=== PATIENT | female | born 2000 | race Caucasian/White ===

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

== ENCOUNTER 2021-01-21 16:27 | Emergency (ER) | payer MEDICAID ==
[~2021-01-21] VITALS: Ht 170 cm; Wt 79.0 kg
[~2021-01-21 16:27] MED LIST: ERYT1OIN6 OP
[2021-01-21] MEDS ORDERED: IBUPROFEN 800 MG (MOTRIN) TAB PO ONE ×2 (18:00→18:02)
--- NOTE | 2021-01-21 18:00 | ED Cough/URI ---
General Chief Complaint: COVID19 Suspect/Confirmed Stated Complaint: CHILLS,SORE THROAT,HEADACHE, BODY ACHES Nursing Triage Note: PT AMB TO ER WITH C/O SOB, COUGH, BODY ACHES TODAY. SHE HAS BEEN AROUND SICK FRIENDS. PT TRIED TO WORK TODAY BUT WAS SENT HOME DUE TO FEELING ILL Source: patient Exam Limitations: no limitations Allergies and Home Medications Allergies Coded Allergies: latex (Verified Allergy, Unknown, 12/28/20) Patient Home Medication List Erythromycin Base (Erythromycin Opthalmic Ointment) 1 Gm Oint...g., 0 OP Q6H Prescribed by: ETHEL MA on 12/28/20 1117 Past Wxzhzos-Jbpimv-Zisvbg Hx Patient Social History Use of E-Cig and/or Vaping dev: Yes E-Cig or Vaping type used: Nicotine Use of E-Cig and/or Vaping Jeferson: Current Everyday User Substance use?: No Alcohol Use?: Yes Alcohol type: Wine Alcohol Frequency: Rarely Pt feels they are or have been: No Immunizations Up To Date Influenza Vaccine Up-to-Date: No; Not Current Past Medical History Surgery/Hospitalization HX: DEPRESSION, ANXIETY, BIPOLAR, HSV Surgeries: No Physical Exam Vital Signs - First Documented 01/21/21 16:38 Temp 38.2 Pulse 100 Resp 18 B/P (MAP) 140/92 (108) Pulse Ox 99 O2 Delivery Room Air Capillary Refill : Less Than 3 Seconds Height: '" Weight: lbs. oz. kg; 27.00 BMI Method: Progress/Results/Core Measures Suspected Sepsis SIRS Temperature: Pulse: 100 Respiratory Rate: 18 Blood Pressure 140 /92 Mean: 108 Results/Orders Lab Results Laboratory Tests Test 01/21/21 16:43 Range/Units Influenza Type A (RT-PCR) Detected H Not Detecte Influenza Type B (RT-PCR) Not Detected Not Detecte SARS-CoV-2 RNA (RT-PCR) Not Detected Not Detecte My Orders Orders - MICAELA PAULINO APRN Covid 19 Inhouse Test (01/21/21 16:44) Influenza A And B By Pcr (01/21/21 16:44) Vital Signs/I&O 01/21/21 16:38 Temp 38.2 Pulse 100 Resp 18 B/P (MAP) 140/92 (108) Pulse Ox 99 O2 Delivery Room Air Capillary Refill : Less Than 3 Seconds Blood Pressure Mean: 108 Departure Impression Primary Impression: Influenza A Disposition: 01 HOME, SELF-CARE Condition: Stable Departure-Patient Inst. Decision time for Depature: 17:57 Referrals: NO,LOCAL PHYSICIAN (PCP/Family) Primary Care Physician Patient Instructions: Flu, Adult (DC) Add. Discharge Instructions: Plan: 1. Drink plenty of fluids to stay hydrated. You can take Tylenol 1000mg every 8 hours as needed or Ibuprofen 600mg every 6 hours as needed for pain/fever. 2. Take your Xofluza as directed. This may shorten the length of your symptoms. 3. Quarantine at home until you are fever free for 24 hours without use of medication (Tylenol/Ibuprofen). 4. Return for any new, concerning, or worsening symptoms. All discharge instructions reviewed with patient and/or family. Voiced understanding. Scripts Baloxavir Marboxil (Xofluza) 40 Mg Tablet 40 MG PO ONCE, #1 TAB 0 Refills Prov: MICAELA PAULINO ACADEMY DIRECTOR 01/21/21 Work/School Note: Work Release Form Date Seen in the Emergency Department: Jan 21, 2021 Return to Work: Jan 27, 2021 Restrictions: No Restrictions Restrictions: Must be fever free for 24 hours before returning to work. MICAELA PAULINO ACADEMY DIRECTOR Jan 21, 2021 18:00
[2021-01-21] MEDS ORDERED: BALO40TA PO (18:01)
[2021-01-21 18:12] VITALS: BP 149/92
== END 2021-01-21 18:14 | disposition home or self-care (01) ==
LOC: EDUNIT# 16:27 → ER 16:29
DX: J10.1 Influenza due to other identified influenza virus with other respiratory manifestations (principal); F17.290 Nicotine dependence, other tobacco product, uncomplicated; Z91.040 Latex allergy status; Z20.822 Contact with and (suspected) exposure to COVID-19
CPT/HCPCS: 87636; 99283

== ENCOUNTER 2021-08-12 09:02 | Emergency (ER) | payer MEDICAID ==
[~2021-08-12] VITALS: Ht 170 cm; Wt 74.0 kg
[~2021-08-12 09:02] MED LIST changes: +BALO40TA4 PO
[2021-08-12 09:34] LABS: CLARITY,URINE CLEAR; COLOR,URINE YELLOW; GLUCOSE, URINE (UA) NEGATIVE (NEGATIVE); KETONES,URINE TRACE (NEGATIVE); LEUKOCYTE ESTERASE ,URINE TRACE (NEGATIVE); NITRITE,URINE NEGATIVE (NEGATIVE); PROTEIN,URINE TRACE (NEGATIVE)
[2021-08-12 09:42] LABS: BACTERIA,URINE MODERATE /HPF; BILIRUBIN,URINE 1+ (NEGATIVE)
--- NOTE | 2021-08-12 11:17 | ED Abdominal Pain ---
General Chief Complaint: Abdominal/GI Problems Stated Complaint: LLQ PAIN,FEVER Nursing Triage Note: ARRIVED VIA AMB WITH COMPLAINTS OF LEFT SIDED ABD PAIN THAT STARTED YESTERDAY AM. PT ALSO COMPLAINS OF A HEADACHE X4 DAYS. Source of Information: Patient Exam Limitations: No Limitations History of Present Illness Date Seen by Provider: Aug 12, 2021 Time Seen by Provider: 11:16 Initial Comments This is a well-appearing 19-year-old female who presented to the ER with complaints of left upper quadrant abdominal pain x2 days. She states she is also had a headache for the past 4 days but does not feel this is related to her current complaint. She denies any known ill contacts. Reports some nausea with no emesis. States that she used to drink very heavy over the past several years but has slowly decreased the amount of alcohol she drinks. 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 No fever, chills, rash, cough, shortness of breath, chest pain. Allergies and Home Medications Allergies Coded Allergies: latex (Verified Allergy, Unknown, 12/28/20) Patient Home Medication List Home Medication List Reviewed: Yes Discontinued Medications Baloxavir Marboxil (Xofluza) 40 Mg Tablet, 40 MG PO ONCE Discontinued Reason: No Longer Taking Prescribed by: MICAELA PAULINO on 01/21/21 1801 Last Action: Discontinued Erythromycin Base (Erythromycin Opthalmic Ointment) 1 Gm Oint...g., 0 OP Q6H Discontinued Reason: No Longer Taking Prescribed by: ETHEL MA on 12/28/20 1117 Last Action: Discontinued Review of Systems Review of Systems Constitutional: see HPI EENTM: No Symptoms Reported Respiratory: No Symptoms Reported Cardiovascular: No Symptoms Reported Gastrointestinal: See HPI Genitourinary: No Symptoms Reported Musculoskeletal: no symptoms reported Skin: no symptoms reported Psychiatric/Neurological: No Symptoms Reported Endocrine: No Symptoms Reported Hematologic/Lymphatic: No Symptoms Reported Past Vlecfvh-Docwvv-Ndjodl Hx Patient Social History Use of E-Cig and/or Vaping dev: Yes E-Cig or Vaping type used: Nicotine Substance use?: Yes Substance type: Marijuana Alcohol Use?: Yes Alcohol Frequency: Once in a while Past Medical History Surgery/Hospitalization HX: DEPRESSION, ANXIETY, BIPOLAR, HSV Surgeries: No Physical Exam Vital Signs Vital Signs - First Documented 08/12/21 09:10 Temp 37.7 Pulse 98 Resp 16 B/P (MAP) 131/94 (106) Pulse Ox 99 O2 Delivery Room Air Capillary Refill : Less Than 3 Seconds Height/Weight/BMI Height: '" Weight: lbs. oz. kg; 25.00 BMI Method: General Appearance: WD/WN, no apparent distress HEENT: PERRL/EOMI, normal ENT inspection, TMs normal, pharynx normal Neck: full range of motion, supple, normal inspection Respiratory: lungs clear, normal breath sounds, no respiratory distress, no accessory muscle use Cardiovascular: regular rate, rhythm, no murmur Gastrointestinal: normal bowel sounds, soft; No distended, No guarding, No rebound; tenderness (LUQ tenderness ) Extremities: normal range of motion, normal inspection Back: normal inspection Neurologic/Psychiatric: no motor/sensory deficits, alert, normal mood/affect, oriented x 3 Skin: normal color, warm/dry Progress/Results/Core Measures Results/Orders Lab Results Laboratory Tests Test 08/12/21 09:10 08/12/21 09:25 08/12/21 11:10 Range/Units Hepatitis A IgM Antibody Non-Reactive Non-Reactive Hepatitis B Surface Antigen Non-Reactive Non-Reactive Hepatitis B Core IgM Antibody Non-Reactive Non-Reactive Hepatitis C Antibody Non-Reactive Non-Reactive Monoscreen NEGATIVE NEGATIVE Urine Color YELLOW Urine Clarity CLEAR Urine pH 6.0 5-9 Urine Specific Furlong >=1.030 1.016-1.022 Urine Protein TRACE H NEGATIVE Urine Glucose (UA) NEGATIVE NEGATIVE Urine Ketones TRACE H NEGATIVE Urine Nitrite NEGATIVE NEGATIVE Urine Bilirubin 1+ H NEGATIVE Urine Urobilinogen 1.0 < = 1.0 MG/DL Urine Leukocyte Esterase TRACE H NEGATIVE Urine RBC (Auto) NEGATIVE NEGATIVE Urine RBC NONE /HPF Urine WBC 5-10 H /HPF Urine Squamous Epithelial Cells 5-10 /HPF Urine Crystals NONE /LPF Urine Bacteria MODERATE H /HPF Urine Casts NONE /LPF Urine Mucus NEGATIVE /LPF Urine Culture Indicated YES White Blood Count 11.2 H 4.3-11.0 10^3/uL Red Blood Count 5.02 3.80-5.11 10^6/uL Hemoglobin 15.0 11.5-16.0 g/dL Hematocrit 46 35-52 % Mean Corpuscular Volume 91 80-99 fL Mean Corpuscular Hemoglobin 30 25-34 pg Mean Corpuscular Hemoglobin Concent 33 32-36 g/dL Red Cell Distribution Width 14.5 10.0-14.5 % Platelet Count 243 130-400 10^3/uL Mean Platelet Volume 11.7 9.0-12.2 fL Immature Granulocyte % (Auto) 0 % Neutrophils (%) (Auto) 32 L 42-75 % Lymphocytes (%) (Auto) 52 H 12-44 % Monocytes (%) (Auto) 13 H 0-12 % Eosinophils (%) (Auto) 2 0-10 % Basophils (%) (Auto) 1 0-10 % Neutrophils # (Auto) 3.6 1.8-7.8 10^3/uL Lymphocytes # (Auto) 5.8 H 1.0-4.0 10^3/uL Monocytes # (Auto) 1.5 H 0.0-1.0 10^3/uL Eosinophils # (Auto) 0.2 0.0-0.3 10^3/uL Basophils # (Auto) 0.2 H 0.0-0.1 10^3/uL Immature Granulocyte # (Auto) 0.0 0.0-0.1 10^3/uL Sodium Level 138 135-145 MMOL/L Potassium Level 4.3 3.6-5.0 MMOL/L Chloride Level 104 98-107 MMOL/L Carbon Dioxide Level 22 21-32 MMOL/L Anion Gap 12 5-14 MMOL/L Blood Urea Nitrogen 15 7-18 MG/DL Creatinine 0.83 0.60-1.30 MG/DL Estimat Glomerular Filtration Rate 104 BUN/Creatinine Ratio 18 Glucose Level 81 70-105 MG/DL Calcium Level 9.5 8.5-10.1 MG/DL Corrected Calcium 9.4 8.5-10.1 MG/DL Total Bilirubin 0.7 0.1-1.0 MG/DL Aspartate Amino Transf (AST/SGOT) 149 H 5-34 U/L Alanine Aminotransferase (ALT/SGPT) 218 H 0-55 U/L Alkaline Phosphatase 140 H 40-136 U/L Total Protein 8.0 6.4-8.2 GM/DL Albumin 4.1 3.2-4.5 GM/DL Lipase 35 8-78 U/L Micro Results Microbiology 08/12/21 Urine Culture - Final, Complete Mixed Bacterial Beth My Orders Orders - MICAELA PAULINO CARTON FILLER Cbc With Automated Diff (08/12/21 11:16) Comprehensive Metabolic Panel (08/12/21 11:16) Lipase (08/12/21 11:16) Ketorolac Injection (Toradol Injection) (08/12/21 11:30) Ct Abdomen/Pelvis Wo (08/12/21 12:01) Monotest (08/12/21 12:02) Hepatitis Panel Acute (08/12/21 12:40) Medications Given in ED Vital Signs/I&O 08/12/21 08/12/21 09:10 13:05 Temp 37.7 Pulse 98 85 Resp 16 16 B/P (MAP) 131/94 (106) 126/78 Pulse Ox 99 99 O2 Delivery Room Air Room Air Blood Pressure Mean: 106 Progress Progress Note : Progress Note Patient examined and in no acute distress. Orders given for basic labs, lipase, Monospot, UA. We will go ahead and do CT abdomen pelvis with contrast. Given Toradol IV for pain. Reported improvement of pain with Toradol. Her liver enzymes were marginally elevated and she had some splenomegaly on her CT exam. Her Monospot was negativ e. Discussed this is could be related to her excessive alcohol consumption vs viral infection and would recommend decreasing the amount of alcohol she takes. Strongly encouraged having a primary care provider so we can continue further work-up and re-evaluate her LFT's, will go ahead and add a acute hepatitis panel as she does not have a PCP at this time. Discharge POC reviewed and she is agreeable with plan. Diagnostic Imaging Diagonstic Imaging: CT Plain Films/CT/US/NM/MRI: abdomen, pelvis Comments [facility], [place] NAME: HUYEN CONTEH Christi [facility] REC#: [id number] PT STATUS: DEP ER : 2000 PHYSICIAN: MICAELA PAULINO CARTON FILLER ADMIT DATE: 08/12/21/ER Signed Date of Exam:08/12/21 CT ABDOMEN/PELVIS WO PROCEDURE: CT abdomen and pelvis without contrast. TECHNIQUE: Multiple contiguous axial images were obtained through the abdomen and pelvis without the use of intravenous contrast. Auto Exposure Controls were utilized during the CT exam to meet ALARA standards for radiation dose reduction. INDICATION: Left-sided abdominal pain. Headache. COMPARISON: None FINDINGS: Included portions lung bases are clear. CT ABDOMEN: Spleen is mildly enlarged. It measures 11.6 x 8.9 x 14.9 cm. No focal splenic lesions are seen on this noncontrast exam. The adrenal glands, kidneys, pancreas, and liver have an unremarkable noncontrast CT appearance. Small bowel loops are nondistended. Normal appendix is identified. There is no loculated fluid collection, free fluid or free air within the abdomen. No abnormal mesenteric or retroperitoneal adenopathy is seen. Osseous structures show no acute abnormalities. CT pelvis: Urinary bladder is unopacified. No calculi are seen within urinary bladder. Small amount of free fluid is present within the pelvis. Indwelling intrauterine contraceptive device is also noted and appears to be in appropriate position. There is no loculated fluid collection or free air. No abnormal adenopathy is seen. Osseous structures show no acute abnormalities. IMPRESSION: 1. Mild splenomegaly. 2. Small amount of free fluid within the pelvis; possibly physiologic. Dictated by: Dictated on workstation # [id number] Dict: 08/12/21 1223 Trans: 08/12/21 1700 [id number] Interpreted by: ALINE CHENG MD Electronically signed by: ALINE CHENG MD 08/12/211699 Reviewed: Reviewed by Me Departure Impression Primary Impression: Elevated liver transaminase level Additional Impression: Spleen enlargement Disposition: 01 HOME, SELF-CARE Condition: Improved Departure-Patient Inst. Decision time for Depature: 12:42 Referrals: NO,LOCAL PHYSICIAN (PCP/Family) Primary Care Physician Patient Instructions: LOCAL PHYSICIAN LIST, Cirrhosis (DC) Add. Discharge Instructions: Plan: 1. Quit drinking alcohol. Avoid taking medications that contain Tylenol. 2. Establish with a primary care provider of your choice and have follow up to have your liver enzymes rechecked in 4-6 weeks. 3. We added a hepatitis panel to your labs. We will notify you if any are positive. 4. Rest. Avoid contact sports as your spleen is more susceptible to rupture with trauma due to enlargement. 5. Return to ER for any new, concerning, or worsening symptoms. All discharge instructions reviewed with patient and/or family. Voiced understanding. MICAELA PUALINO CARTON FILLER Aug 12, 2021 11:17
[2021-08-12 11:24] LABS: BASOPHILS # (AUTO) 0.2 10^3/uL (0.0-0.1); BASOPHILS % (AUTO) 1 % (0-10); EOSINOPHILS # (AUTO) 0.2 10^3/uL (0.0-0.3); EOSINOPHILS % (AUTO) 2 % (0-10); HEMATOCRIT 46 % (35-52); LYMPHOCYTES # (AUTO) 5.8 10^3/uL (1.0-4.0); LYMPHOCYTES % (AUTO) 52 % (12-44); MEAN CORPUSCULAR HEMOGLOBIN 30 pg (25-34); MEAN CORPUSCULAR HGB CONC 33 g/dL (32-36); MEAN CORPUSCULAR VOLUME 91 fL (80-99); MEAN PLATELET VOLUME 11.7 fL (9.0-12.2); MONOCYTES # (AUTO) 1.5 10^3/uL (0.0-1.0); MONOCYTES % (AUTO) 13 % (0-12); NEUTROPHILS # (AUTO) 3.6 10^3/uL (1.8-7.8); NEUTROPHILS % (AUTO) 32 % (42-75); PLATELET COUNT 243 10^3/uL (130-400); WHITE BLOOD COUNT 11.2 10^3/uL (4.3-11.0)
[2021-08-12] MEDS ORDERED: KETOROLAC 30 MG/ML VIAL IVP ONE (11:30)
[2021-08-12 11:33] LABS: ALBUMIN 4.1 GM/DL (3.2-4.5)
[2021-08-12 11:34] LABS: POTASSIUM 4.3 MMOL/L (3.6-5.0)
[2021-08-12 11:35] LABS: CALCIUM 9.5 MG/DL (8.5-10.1)
[2021-08-12 11:38] LABS: BILIRUBIN,TOTAL 0.7 MG/DL (0.1-1.0)
[2021-08-12 11:40] LABS: CREATININE SERUM 0.83 MG/DL (0.60-1.30)
--- NOTE | 2021-08-12 12:32 | Diagnostic Imaging Report ---
PROCEDURE: CT abdomen and pelvis without contrast. TECHNIQUE: Multiple contiguous axial images were obtained through the abdomen and pelvis without the use of intravenous contrast. Auto Exposure Controls were utilized during the CT exam to meet ALARA standards for radiation dose reduction. INDICATION: Left-sided abdominal pain. Headache. COMPARISON: None FINDINGS: Included portions lung bases are clear. CT ABDOMEN: Spleen is mildly enlarged. It measures 11.6 x 8.9 x 14.9 cm. No focal splenic lesions are seen on this noncontrast exam. The adrenal glands, kidneys, pancreas, and liver have an unremarkable noncontrast CT appearance. Small bowel loops are nondistended. Normal appendix is identified. There is no loculated fluid collection, free fluid or free air within the abdomen. No abnormal mesenteric or retroperitoneal adenopathy is seen. Osseous structures show no acute abnormalities. CT pelvis: Urinary bladder is unopacified. No calculi are seen within urinary bladder. Small amount of free fluid is present within the pelvis. Indwelling intrauterine contraceptive device is also noted and appears to be in appropriate position. There is no loculated fluid collection or free air. No abnormal adenopathy is seen. Osseous structures show no acute abnormalities. IMPRESSION: 1. Mild splenomegaly. 2. Small amount of free fluid within the pelvis; possibly physiologic. Dictated by: Dictated on workstation # [id number]
[2021-08-12 13:05] VITALS: BP 126/78
[2021-08-12 22:58] LABS: HEPATITIS C ANTIBODY C Non-Reactive (Non-Reactive)
== END 2021-08-12 13:05 | disposition home or self-care (01) ==
LOC: EDUNIT# 09:02 → ER 09:03
DX: R16.1 Splenomegaly, not elsewhere classified (principal); R94.5 Abnormal results of liver function studies
CPT/HCPCS: 36415; 74176; 80053; 80074; 81000; 83690; 84703; 85025; 86308; 87088

== ENCOUNTER 2021-11-11 22:08 | Emergency (ER) | payer MEDICAID ==
[2021-11-11] MEDS ORDERED: KETOROLAC 30 MG/ML VIAL IVP ONE (22:45)
[2021-11-11 22:50] LABS: CLARITY,URINE CLEAR; COLOR,URINE YELLOW; GLUCOSE, URINE (UA) NEGATIVE (NEGATIVE); KETONES,URINE 2+ (NEGATIVE); LEUKOCYTE ESTERASE ,URINE NEGATIVE (NEGATIVE); NITRITE,URINE NEGATIVE (NEGATIVE); PROTEIN,URINE TRACE (NEGATIVE)
[2021-11-11 22:55] LABS: BILIRUBIN,URINE 1+ (NEGATIVE)
[2021-11-11 22:58] LABS: BACTERIA,URINE MODERATE /HPF; RBC,URINE 0-2 /HPF
[2021-11-11 23:22] LABS: BASOPHILS # (AUTO) 0.1 10^3/uL (0.0-0.1); BASOPHILS % (AUTO) 1 % (0-10); EOSINOPHILS # (AUTO) 0.1 10^3/uL (0.0-0.3); EOSINOPHILS % (AUTO) 1 % (0-10); HEMATOCRIT 39 % (35-52); HEMOGLOBIN 13.4 g/dL (11.5-16.0); LYMPHOCYTES # (AUTO) 2.2 10^3/uL (1.0-4.0); LYMPHOCYTES % (AUTO) 33 % (12-44); MEAN CORPUSCULAR HEMOGLOBIN 30 pg (25-34); MEAN CORPUSCULAR HGB CONC 34 g/dL (32-36); MEAN CORPUSCULAR VOLUME 88 fL (80-99); MONOCYTES # (AUTO) 0.4 10^3/uL (0.0-1.0); MONOCYTES % (AUTO) 6 % (0-12); NEUTROPHILS % (AUTO) 60 % (42-75); PLATELET COUNT 291 10^3/uL (130-400); WHITE BLOOD COUNT 6.7 10^3/uL (4.3-11.0)
[2021-11-11 23:40] LABS: ALBUMIN 4.3 GM/DL (3.2-4.5); BILIRUBIN,TOTAL 0.5 MG/DL (0.1-1.0); CALCIUM 9.1 MG/DL (8.5-10.1); CREATININE SERUM 0.83 MG/DL (0.60-1.30); POTASSIUM 3.6 MMOL/L (3.6-5.0); TOTAL PROTEIN 7.3 GM/DL (6.4-8.2)
--- NOTE | 2021-11-11 23:54 | ED Abdominal Pain ---
General Chief Complaint: Abdominal/GI Problems Stated Complaint: R LEG SHOOTING PAIN,ABD PAIN,HIS OF OVARIAN ISSUES Nursing Triage Note: PT ARRIVAL TO ER WITH COMPLAINT OF ABDOMINAL PAIN SINCE MID AFTERNOON. LOWER RIGHT SIDED ABDOMINAL PAIN, SOME PAIN IN LOWER BACK. HX OF CYSTS. PATIENT BELIEVES ONE RUPTURED. PAIN IS RATED AT 9/10. STABBING LIKE PAIN. NO PAIN OR DIFFICULTY WITH URINATION. Source of Information: Patient Exam Limitations: No Limitations History of Present Illness Date Seen by Provider: Nov 11, 2021 Time Seen by Provider: 22:18 Initial Comments This is a 20 yo female who presented to the ER via POV with c/o right lower abdominal pain since mid afternoon today. Pain is intermittent spasm and radiates down her right leg. Has had similar pain in past with rupture of ovarian cyst, believes this may be source of her pain today. No fever, chills, nausea, vomiting, diarrhea, constipation. No dysuria, hematuria, or vaginal bleeding. Allergies and Home Medications Allergies Coded Allergies: latex (Verified Allergy, Unknown, 12/28/20) Patient Home Medication List Home Medication List Reviewed: Yes Review of Systems Review of Systems Constitutional: see HPI Past Wmedtxo-Tqayuf-[id number] Hx Patient Social History Tobacco Use?: Yes Tobacco type used: Cigarettes Smoking Status: Current Everyday Smoker Use of E-Cig and/or Vaping dev: No Substance use?: No Alcohol Use?: No Pt feels they are or have been: No Immunizations Up To Date Influenza Vaccine Up-to-Date: No; Not Current Past Medical History Surgery/Hospitalization HX: DEPRESSION, ANXIETY, BIPOLAR, HSV Surgeries: No Physical Exam Vital Signs Vital Signs - First Documented 11/11/21 11/12/21 22:18 01:37 Temp 36.8 Pulse 98 Resp 18 B/P (MAP) 150/77 (101) Pulse Ox 99 O2 Delivery Room Air Capillary Refill : Less Than 3 Seconds Height/Weight/BMI Height: '" Weight: lbs. oz. kg; 25.00 BMI Method: General Appearance: WD/WN, no apparent distress HEENT: PERRL/EOMI, normal ENT inspection, pharynx normal Neck: full range of motion, supple, normal inspection Respiratory: lungs clear, normal breath sounds, no respiratory distress, no accessory muscle use Cardiovascular: regular rate, rhythm, no murmur Gastrointestinal: normal bowel sounds, soft, no organomegaly, tenderness (RLQ) Extremities: normal range of motion, non-tender, normal inspection Neurologic/Psychiatric: no motor/sensory deficits, alert, normal mood/affect, oriented x 3 Skin: normal color, warm/dry Progress/Results/Core Measures Results/Orders Lab Results Laboratory Tests Test 11/11/21 22:45 11/11/21 23:16 Range/Units Urine Color YELLOW Urine Clarity CLEAR Urine pH 5.0 5-9 Urine Specific [place] >=1.030 1.016-1.022 Urine Protein TRACE H NEGATIVE Urine Glucose (UA) NEGATIVE NEGATIVE Urine Ketones 2+ H NEGATIVE Urine Nitrite NEGATIVE NEGATIVE Urine Bilirubin 1+ H NEGATIVE Urine Urobilinogen 0.2 < = 1.0 MG/DL Urine Leukocyte Esterase NEGATIVE NEGATIVE Urine RBC (Auto) 1+ H NEGATIVE Urine RBC 0-2 /HPF Urine WBC 2-5 /HPF Urine Squamous Epithelial Cells 2-5 /HPF Urine Renal Epithelial Cells NONE /HPF Urine Crystals NONE /LPF Urine Bacteria MODERATE H /HPF Urine Casts NONE /LPF Urine Mucus MODERATE H /LPF Urine Culture Indicated YES White Blood Count 6.7 4.3-11.0 10^3/uL Red Blood Count 4.42 3.80-5.11 10^6/uL Hemoglobin 13.4 11.5-16.0 g/dL Hematocrit 39 35-52 % Mean Corpuscular Volume 88 80-99 fL Mean Corpuscular Hemoglobin 30 25-34 pg Mean Corpuscular Hemoglobin Concent 34 32-36 g/dL Red Cell Distribution Width 13.2 10.0-14.5 % Platelet Count 291 130-400 10^3/uL Mean Platelet Volume 11.0 9.0-12.2 fL Immature Granulocyte % (Auto) 0 % Neutrophils (%) (Auto) 60 42-75 % Lymphocytes (%) (Auto) 33 12-44 % Monocytes (%) (Auto) 6 0-12 % Eosinophils (%) (Auto) 1 0-10 % Basophils (%) (Auto) 1 0-10 % Neutrophils # (Auto) 4.0 1.8-7.8 10^3/uL Lymphocytes # (Auto) 2.2 1.0-4.0 10^3/uL Monocytes # (Auto) 0.4 0.0-1.0 10^3/uL Eosinophils # (Auto) 0.1 0.0-0.3 10^3/uL Basophils # (Auto) 0.1 0.0-0.1 10^3/uL Immature Granulocyte # (Auto) 0.0 0.0-0.1 10^3/uL Sodium Level 140 135-145 MMOL/L Potassium Level 3.6 3.6-5.0 MMOL/L Chloride Level 109 H 98-107 MMOL/L Carbon Dioxide Level 20 L 21-32 MMOL/L Anion Gap 11 5-14 MMOL/L Blood Urea Nitrogen 13 7-18 MG/DL Creatinine 0.83 0.60-1.30 MG/DL Estimat Glomerular Filtration Rate 104 BUN/Creatinine Ratio 16 Glucose Level 120 H 70-105 MG/DL Calcium Level 9.1 8.5-10.1 MG/DL Corrected Calcium 8.9 8.5-10.1 MG/DL Total Bilirubin 0.5 0.1-1.0 MG/DL Aspartate Amino Transf (AST/SGOT) 17 5-34 U/L Alanine Aminotransferase (ALT/SGPT) 20 0-55 U/L Alkaline Phosphatase 59 40-136 U/L Total Protein 7.3 6.4-8.2 GM/DL Albumin 4.3 3.2-4.5 GM/DL Micro Results Microbiology 11/11/21 Urine Culture - Final, Complete Gram Pos Mixed Bacterial Beth My Orders Orders - MICAELA PAULINO FIBER DRIER OPERATOR Ua Culture If Indicated (11/11/21 22:16) Urine Bedside (11/11/21 22:16) Ketorolac Injection (Toradol Injection) (11/11/21 22:45) Ed Iv/Invasive Line Start (11/11/21 22:41) Cbc With Automated Diff (11/11/21 22:41) Comprehensive Metabolic Panel (11/11/21 22:41) Urine Culture (11/11/21 22:45) Ct Abdomen/Pelvis W (11/11/21 23:20) Iv Push Lining Folder Ed (11/11/21 ) Medications Given in ED Vital Signs/I&O 11/11/21 11/12/21 22:18 01:37 Temp 36.8 Pulse 98 78 Resp 18 20 B/P (MAP) 150/77 (101) 128/82 Pulse Ox 99 99 O2 Delivery Room Air Blood Pressure Mean: 101 Diagnostic Imaging Diagonstic Imaging: CT Comments NAME: HUYEN CONTEH REC#: [id number] PT STATUS: DEP ER : 2000 PHYSICIAN: MICAELA PAULINO APRN ADMIT DATE: 11/11/21/ER Signed Date of Exam:11/11/21 CT ABDOMEN/PELVIS W Indication: Right lower quadrant abdominal pain TECHNIQUE: Multiple contiguous axial images were obtained through the abdomen and pelvis after administration of intravenous contrast. Auto Exposure Controls were utilized during the CT exam to meet ALARA standards for radiation dose reduction. All CT scans use one or more of the following dose optimizing techniques: automated exposure control, MA and/or KvP adjustment based on patient size and exam type or iterative reconstruction. Comparison made with 08/12/2021 The visualized portions of the lung bases are clear. There were no pleural fluid collections. There is no free intraperitoneal air. The liver and gallbladder appear normal. The spleen, adrenals, and pancreas appear unremarkable. The splenic enlargement seen on 08/12/2021 appears improved. The kidneys bilaterally show no hydronephrosis. There is a tiny nonocclusive stone in the lower pole of the right kidney. There is no ureteral stone. There is no retroperitoneal mass or adenopathy. There is no ascites or abnormal fluid collection. The appendix appears normal. There is no pelvic mass. There is an IUD in the uterus. There is a trace of free fluid in the pelvis may be physiologic in a young female. IMPRESSION: No abdominal mass or sign of bowel obstruction. Normal-appearing appendix. Small nonocclusive stone in the lower pole of the right kidney. There is a trace of free fluid in the pelvis which be physiologic in a young female. There is an IUD in place in the uterus. Dictated by: Dictated on workstation # [id number] Dict: 11/12/21629 Trans: 11/12/21 0753 BANNER [id number] Interpreted by: BEBE SNEED MD Electronically signed by: BEBE SNEED MD 11/12/21 0753 Departure Impression Primary Impression: Ruptured ovarian cyst Disposition: HOME, SELF-CARE Condition: Improved Departure-Patient Inst. Decision time for Depature: 01:24 Referrals: NO,LOCAL PHYSICIAN (PCP/Family) Primary Care Physician Patient Instructions: Ovarian Cysts Add. Discharge Instructions: Plan: 1. Call [facility] for follow up regarding recurrent ovarian cyst. 2. May take Tylenol 1000mg by mouth every 8 hours as needed or Ibuprofen 600mg by mouth every 6 hours as needed for pain. A heating pad 20 minutes at a time may also help symptoms. 3. Return to ER for any new, concerning, or worsening symptoms. All discharge instructions reviewed with patient and/or family. Voiced understanding. MICAELA PAULINO FIBER DRIER OPERATOR Nov 11, 2021 23:54
[2021-11-12] MEDS ORDERED: NS 100 ML (IVPB) BAG IV ONE (00:30)
[2021-11-12] MEDS ORDERED: HOLD METFORMIN - RECEIVED CONTRAST 20 ML VIAL IV SCH (00:30)
[2021-11-12] MEDS ORDERED: IOHEXOL 350 MG/ML 100 ML (OMNIPAQUE 350) VIAL IV ONE (00:30)
[2021-11-12 01:37] VITALS: BP 128/82
--- NOTE | 2021-11-12 06:38 | Diagnostic Imaging Report ---
Indication: Right lower quadrant abdominal pain TECHNIQUE: Multiple contiguous axial images were obtained through the abdomen and pelvis after administration of intravenous contrast. Auto Exposure Controls were utilized during the CT exam to meet ALARA standards for radiation dose reduction. All CT scans use one or more of the following dose optimizing techniques: automated exposure control, MA and/or KvP adjustment based on patient size and exam type or iterative reconstruction. Comparison made with 08/12/2021 The visualized portions of the lung bases are clear. There were no pleural fluid collections. There is no free intraperitoneal air. The liver and gallbladder appear normal. The spleen, adrenals, and pancreas appear unremarkable. The splenic enlargement seen on 08/12/2021 appears improved. The kidneys bilaterally show no hydronephrosis. There is a tiny nonocclusive stone in the lower pole of the right kidney. There is no ureteral stone. There is no retroperitoneal mass or adenopathy. There is no ascites or abnormal fluid collection. The appendix appears normal. There is no pelvic mass. There is an IUD in the uterus. There is a trace of free fluid in the pelvis may be physiologic in a young female. IMPRESSION: No abdominal mass or sign of bowel obstruction. Normal-appearing appendix. Small nonocclusive stone in the lower pole of the right kidney. There is a trace of free fluid in the pelvis which be physiologic in a young female. There is an IUD in place in the uterus. Dictated by: Dictated on workstation # [id number]
== END 2021-11-12 01:37 | disposition home or self-care (01) ==
LOC: EDUNIT# 22:08 → ER 22:11
DX: N83.209 Unspecified ovarian cyst, unspecified side (principal); F17.210 Nicotine dependence, cigarettes, uncomplicated; Z91.040 Latex allergy status; Z28.310 Unvaccinated for COVID-19
CPT/HCPCS: 36415; 74177; 80053; 81000; 84703; 85025; 87088; 96374